=== PATIENT | female | born 1955 | race Caucasian/White ===

== ENCOUNTER 2017-09-09 05:36 | Observation (INO) | payer BC, SELFPAY ==
[~2017-09-09] VITALS: Ht 167.6 cm; Wt 87.3 kg
[~2017-09-09 05:36] MED LIST: ? ANTIDEPRESSANT; ACEBUTCAFT PO; ALBU3IS INH; ALBU90OI INH; ALBU90OI61 INH; ALBUIS INH; ALPR.5 PO; ALPR1 PO; AMIT50 PO; AMLO10 PO; AMOCLA875 PO; ASPI325 PO; ATOR20 PO; AZIT250 PO; BUPR150T2 PO; CARI350 PO; CARV3.125 PO; CARV6.25 PO; CEPH500 PO; CLON.2TP TP; CLON.3TP TP; CLOP75 PO; Chantix0.5 MG PO; DOXA4 PO; DULO60 PO; FLUSAL2505 INH; FURO20 PO; FURO40 PO; GI COCKTAIL PO; HYDACE10B PO; ISOMON30 PO; Isosorbide Mono60 MG PO; LAVAP17G PO; LEVFLO500 PO; LOSA25 PO; METO50 PO; NIFE30ER PO; NITR.4SL SL; NITR.4TPA TOP; OLME20 PO; OLME5TAB PO; OMEP20ER PO; ONDA4 PO; ONDA4ODT MM; ONDA8 PO; OXYC10TA19; PANT40 PO; POTA10T PO; PRED20 PO; PROC10 PO; Percocet 5-3251 EACH PO; RANI150 PO; RANO500T PO; ROSU10TA PO; SERT100 PO; SIMV40 PO; Silvadene20 GM TOP; VARE1 PO; VENL150ER PO; VENL75ER PO; [UNRECOGNIZED DRUG - REMARK]; [UNRECOGNIZED DRUG - REMARK]
[2017-09-10 03:57] LABS: BASOPHILS ABSOLUTE AUTO 0.01 K/mm3 (0.00-0.23); BASOPHILS PERCENT AUTO 0 % (0-2); EOSINOPHILS PERCENT AUTO 0 % (0-6); Hematocrit 34.7 % (33.0-51.0); Hemoglobin 11.1 g/dL (11.5-16.0); IMMATURE GRAN ABSOLUTE AUTO 0.01 K/mm3 (0.00-0.10); IMMATURE GRAN PERCENT AUTO 0 % (0-1); LYMPHOCYTES ABSOLUTE AUTO 3.47 K/mm3 (0.84-5.20); LYMPHOCYTES PERCENT AUTO 44 % (21-46); MONOCYTES ABSOLUTE AUTO 0.58 K/mm3 (0.16-1.47); MONOCYTES PERCENT AUTO 7 % (4-13); Mean Corpuscular HGB 27.3 pg (26.0-34.0); Mean Corpuscular Volume 86 fL (80-100); Mean Platelet Volume 11.1 fL (9.1-12.4); NEUTROPHILS ABSOLUTE AUTO 3.79 K/mm3 (1.96-9.15); NEUTROPHILS PERCENT AUTO 48 % (41-73); Platelet Count 181 K/mm3 (150-400); RDW Coefficient Variation 16.1 % (11.7-14.2); Red Blood Cell Count 4.06 M/mm3 (3.80-5.20); White Blood Cell Count 7.86 K/mm3 (4.00-11.30)
[2017-09-10 04:19] LABS: Bun/Creatinine Ratio 20.8 (12.0-20.0); Calcium, Blood 8.1 mg/dL (8.5-10.1); Creatinine, Blood 1.2 mg/dL (0.40-1.00); Potassium, Blood 3.5 mmol/L (3.5-5.5)
== END 2017-09-10 09:46 | disposition home or self-care (01) ==
LOC: MHTC 05:36 → PCU 09:46 → MHTC 09:47 → PCU 09-10 09:46
PROVIDERS: Internal Medicine Interventional Cardiology
PROC: B240ZZ3 Ultrasonography of Single Coronary Artery, Intravascular (ICD-10-PCS; principal; 2017-09-09)
PROC: 027034Z Dilation of Coronary Artery, One Artery with Drug-eluting Intraluminal Device, Percutaneous Approach (ICD-10-PCS; principal; 2017-09-09)
PROC: B2111ZZ Fluoroscopy of Multiple Coronary Arteries using Low Osmolar Contrast (ICD-10-PCS; principal; 2017-09-09)
PROC: 4A033BC Measurement of Arterial Pressure, Coronary, Percutaneous Approach (ICD-10-PCS; principal; 2017-09-09)
DX: I25.119 Atherosclerotic heart disease of native coronary artery with unspecified angina pectoris (principal); I73.9 Peripheral vascular disease, unspecified; I11.0 Hypertensive heart disease with heart failure; I50.1 Left ventricular failure, unspecified; R09.89 Other specified symptoms and signs involving the circulatory and respiratory systems; R00.1 Bradycardia, unspecified; F17.210 Nicotine dependence, cigarettes, uncomplicated; E78.00 Pure hypercholesterolemia, unspecified; M79.7 Fibromyalgia; K21.0 Gastro-esophageal reflux disease with esophagitis; M47.26 Other spondylosis with radiculopathy, lumbar region; F43.9 Reaction to severe stress, unspecified; F41.9 Anxiety disorder, unspecified; M72.2 Plantar fascial fibromatosis; M20.40 Other hammer toe(s) (acquired), unspecified foot; Z79.899 Other long term (current) drug therapy; Z79.01 Long term (current) use of anticoagulants; Z79.82 Long term (current) use of aspirin; Z88.5 Allergy status to narcotic agent; Z88.1 Allergy status to other antibiotic agents; Z88.6 Allergy status to analgesic agent
CPT/HCPCS: 36415; 80048; 85025; 85610; 92978; 93005; 93010; 93454; 93571; 99152; 99153; C1725; C1753; C1769; C1874; C1894; C9600; G0378; J1644; J2250; J3010; J7030; Q9967

== ENCOUNTER 2019-02-02 05:38 | Day surgery (SDC) | payer BC ==
[~2019-02-02] VITALS: Ht 167.6 cm; Wt 87.0 kg
[~2019-02-02 05:38] MED LIST changes: +PROM25 PO; +TERA5 PO
--- NOTE | 2019-02-02 06:31 | NUR ---
Patient States Post-Procedure ride home has been arranged with her .
--- NOTE | 2019-02-02 06:31 | NUR ---
History, Chart, Medications and Allergies reviewed before start of procedure. Patienterin denies allergic reaction to pravastatin and requests that it be removed from her allergy list. Patient confirms NPO status and agrees with scheduled surgery.
--- NOTE | 2019-02-02 06:58 | NUR ---
Patient left dentures at home. She gave her glasses to her .
--- NOTE | 2019-02-02 10:10 | NUR ---
INCISIONS TO ABDOMEND C/D/I (STERI STRIPS), BANDIADE TO BELLY BUTTON STERI STRIPS PLACED TO HELP INCASE THERES OOZING. PT STATES PAIN WENT DOWN A FEW NOTCHES. PT BELCHED ASSISTED UP TO GET DRESSED. NAUSEA IMPROVED. AT BEDSIDE. Discharge instructions reviewed with patient. Patient verbalizes understanding. Copy given to patient to take home.
--- NOTE | 2019-02-02 10:15 | NUR ---
Discharged via wheelchair to private car for ride home.
[2019-06-04] MEDS ORDERED: NYSTRITC (16:32)
== END 2019-02-02 22:55 | disposition home or self-care (01) ==
LOC: ORSCMMR 05:38 → ORD 07:30 → ORSCMMR 22:55
PROVIDERS: Surgery
PROC: 0FT44ZZ Resection of Gallbladder, Percutaneous Endoscopic Approach (ICD-10-PCS; principal; 2019-02-02 07:30)
DX: K80.11 Calculus of gallbladder with chronic cholecystitis with obstruction (principal); J44.9 Chronic obstructive pulmonary disease, unspecified; F17.210 Nicotine dependence, cigarettes, uncomplicated; I12.9 Hypertensive chronic kidney disease with stage 1 through stage 4 chronic kidney disease, or unspecified chronic kidney disease; N18.9 Chronic kidney disease, unspecified; R73.03 Prediabetes; Z79.899 Other long term (current) drug therapy; Z79.82 Long term (current) use of aspirin
CPT/HCPCS: 88304; J0360; J0690; J1100; J2250; J2370; J2405; J2704; J3010; J7030; J7120

== ENCOUNTER 2019-06-05 06:18 | Day surgery (SDC) | payer BC ==
[~2019-06-05] VITALS: Ht 167.6 cm; Wt 88.0 kg
[~2019-06-05 06:18] MED LIST changes: +NYSTRITC
--- NOTE | 2019-06-05 11:30 | NUR ---
Dr. Zapata in recovery room. Orders received for iv hydralazine with parameters.
--- NOTE | 2019-06-05 11:50 | NUR ---
Telephone orders for Oxycodne 10 mg po, also I was unable to find patients papers that Dr. Zapata said he filled out for no work until she is seen in his office 17 June. No time .. I called and asked Thu to help clarify the time of the appointment as well as the work release form. Thu will work on it from her side and make the follow up time as well as redo the work relase paper work.
--- NOTE | 2019-06-05 13:18 | NUR ---
pT MEDICATED WITH RX FOR B/P ELEVATED.
--- NOTE | 2019-06-05 13:21 | NUR ---
2 CC AIR REMOVED FROM TR-BAND. Pt little anxious. family at bedside. b/p dropping down 153/64.
--- NOTE | 2019-06-05 13:45 | NUR ---
ALL AIR GONE FROM TR-BAND. PT EATING SOME SNACKS. B/P 149/65 PT STATES SHE HAS H/A/ GIVEN FOOD AND FLUID.
--- NOTE | 2019-06-05 14:45 | NUR ---
Tr-band removed dabbed with warm water and patted dry. Cloth dot applied to the right radial site. No bleeding or hematoma noted. Pt reviewed discharge instructions with me and verbalized understanding. Inst patient to cut down on smoking as she is havind difficulty in stopping. Pt also smokes in car and has made a verbal agreement to stop in care and decrease cigs down to 10 instead of 15. Pt encourage to drink more water in the next few days to help her kidneys. She also was told to keep track of b/p and take into the Doctor for tracking pt verbalizes understanding.
== END 2019-06-05 16:00 | disposition home or self-care (01) ==
LOC: MHTC 06:18
DX: I25.119 Atherosclerotic heart disease of native coronary artery with unspecified angina pectoris (principal); I10 Essential (primary) hypertension; I73.9 Peripheral vascular disease, unspecified; M79.7 Fibromyalgia; M47.816 Spondylosis without myelopathy or radiculopathy, lumbar region; F32.9 Major depressive disorder, single episode, unspecified; K21.9 Gastro-esophageal reflux disease without esophagitis; F17.210 Nicotine dependence, cigarettes, uncomplicated; Z88.5 Allergy status to narcotic agent; Z88.8 Allergy status to other drugs, medicaments and biological substances; Z88.1 Allergy status to other antibiotic agents; Z88.6 Allergy status to analgesic agent; Z79.899 Other long term (current) drug therapy; Z79.82 Long term (current) use of aspirin; Z79.51 Long term (current) use of inhaled steroids; Z95.5 Presence of coronary angioplasty implant and graft
CPT/HCPCS: 85347; 92978; 93005; 93010; 93454; 99152; 99153; C1753; C1769; C1887; C1894; J0153; J0360; J1200; J1644; J2250; J3010; J7030; Q9967

== ENCOUNTER 2019-06-26 15:55 | Observation (INO) | payer BC ==
[~2019-06-26] VITALS: Ht 167.6 cm; Wt 87.4 kg
[~2019-06-26 15:55] MED LIST changes: -ALBU90OI61 INH; -ASPI325 PO; -ATOR20 PO; -LOSA25 PO; -OXYC10TA19; -PANT40 PO; -TERA5 PO
[2019-06-26] MEDS ORDERED: FURO20 PO (16:38)
[2019-06-26] MEDS ORDERED: METO50 PO (16:39)
[2019-06-26] MEDS ORDERED: Terazosin HCl10 MG PO (16:40)
[2019-06-26] MEDS ORDERED: LOSARTAN POTAS100 MG PO (16:41)
[2019-06-26] MEDS ORDERED: ATOR20 PO (16:41)
[2019-06-26 16:44] LABS: BASOPHILS ABSOLUTE AUTO 0.02 K/mm3 (0.00-0.23); BASOPHILS PERCENT AUTO 0 % (0-2); EOSINOPHILS ABSOLUTE AUTO 0.02 K/mm3 (0.00-0.68); EOSINOPHILS PERCENT AUTO 0 % (0-6); Hematocrit 37.4 % (33.0-51.0); Hemoglobin 11.7 g/dL (11.5-16.0); IMMATURE GRAN ABSOLUTE AUTO 0.14 K/mm3 (0.00-0.10); IMMATURE GRAN PERCENT AUTO 1 % (0-1); LYMPHOCYTES ABSOLUTE AUTO 3.89 K/mm3 (0.84-5.20); LYMPHOCYTES PERCENT AUTO 32 % (21-46); MONOCYTES ABSOLUTE AUTO 0.96 K/mm3 (0.16-1.47); MONOCYTES PERCENT AUTO 8 % (4-13); Mean Corpuscular HGB 28.1 pg (26.0-34.0); Mean Corpuscular HGB Conc 31.3 g/dL (31.5-36.5); Mean Corpuscular Volume 90 fL (80-100); Mean Platelet Volume 10.1 fL (9.1-12.4); NEUTROPHILS ABSOLUTE AUTO 7.25 K/mm3 (1.96-9.15); NEUTROPHILS PERCENT AUTO 59 % (41-73); Platelet Count 405 K/mm3 (150-400); RDW Coefficient Variation 15.3 % (11.7-14.2); RDW Standard Deviation 50.4 fL (35.1-46.3); Red Blood Cell Count 4.17 M/mm3 (3.80-5.20); White Blood Cell Count 12.28 K/mm3 (4.00-11.30)
[2019-06-26 17:10] LABS: Albumin, Blood 3.2 g/dL (3.4-5.0); Albumin/Globulin Ratio 0.7 (0.8-1.8); Bilirubin, Total 0.5 mg/dL (0.1-1.0); Bun/Creatinine Ratio 30.1 (12.0-20.0); Calcium, Blood 8.9 mg/dL (8.5-10.1); Creatinine, Blood 1.53 mg/dL (0.40-1.00); Globulin, Blood 4.5 g/dL (2.2-4.0); Potassium, Blood 3.8 mmol/L (3.5-5.5); Total Protein, Blood 7.7 g/dL (6.4-8.2); Troponin I 0.048 ng/mL (0.000-0.040)
[2019-06-26] MEDS ORDERED: VENL75ER PO (18:08)
[2019-06-26] MEDS ORDERED: OXYC10TA19 PO (18:08)
[2019-06-26] MEDS ORDERED: ASPI81CH PO (18:08)
[2019-06-26] MEDS ORDERED: PANT40 PO (18:09)
[2019-06-26] MEDS ORDERED: Potassium Chlo10 ME1 PO (18:09)
[2019-06-26] MEDS ORDERED: ALBU90OI61 INH (18:19)
[2019-06-26 18:57] LABS: International Normalized Ratio 1.03; Prothrombin Time Results 10.9 Sec (9.7-11.5)
[2019-06-27 00:58] LABS: BASOPHILS ABSOLUTE AUTO 0.03 K/mm3 (0.00-0.23); BASOPHILS PERCENT AUTO 0 % (0-2); EOSINOPHILS ABSOLUTE AUTO 0.01 K/mm3 (0.00-0.68); EOSINOPHILS PERCENT AUTO 0 % (0-6); Hematocrit 35.7 % (33.0-51.0); Hemoglobin 11.1 g/dL (11.5-16.0); IMMATURE GRAN PERCENT AUTO 1 % (0-1); LYMPHOCYTES ABSOLUTE AUTO 3.56 K/mm3 (0.84-5.20); LYMPHOCYTES PERCENT AUTO 36 % (21-46); MONOCYTES ABSOLUTE AUTO 0.76 K/mm3 (0.16-1.47); MONOCYTES PERCENT AUTO 8 % (4-13); Mean Corpuscular HGB 28.5 pg (26.0-34.0); Mean Corpuscular HGB Conc 31.1 g/dL (31.5-36.5); Mean Corpuscular Volume 92 fL (80-100); Mean Platelet Volume 10.3 fL (9.1-12.4); NEUTROPHILS ABSOLUTE AUTO 5.45 K/mm3 (1.96-9.15); NEUTROPHILS PERCENT AUTO 55 % (41-73); Platelet Count 362 K/mm3 (150-400); RDW Coefficient Variation 15.4 % (11.7-14.2); RDW Standard Deviation 51.9 fL (35.1-46.3); Red Blood Cell Count 3.89 M/mm3 (3.80-5.20); White Blood Cell Count 9.91 K/mm3 (4.00-11.30)
[2019-06-27 01:16] LABS: Albumin, Blood 2.8 g/dL (3.4-5.0); Albumin/Globulin Ratio 0.7 (0.8-1.8); Bilirubin, Total 0.2 mg/dL (0.1-1.0); Bun/Creatinine Ratio 34.6 (12.0-20.0); Calcium, Blood 8.8 mg/dL (8.5-10.1); Creatinine, Blood 1.33 mg/dL (0.40-1.00); Globulin, Blood 4.2 g/dL (2.2-4.0); Potassium, Blood 4.1 mmol/L (3.5-5.5)
--- NOTE | 2019-06-27 05:40 | NUR ---
SHIFT SUMMARY: 64 Y/O FEMALE ADMITTED [facility] AROUND 1943 FOR [facility]IB W/ RVR. SHE ARRIVED IN AFIB AND NATURALLY CONVERTED BACK TO SINUS WHEN IN THE ER. SHE WAS ADMITTED FOR OBSERVATION SHE RECENTLY HAD A CABAG COMPLETED ON 06/16. SHE ARRIVED TO THE FLOOR VIA GURNEY BUT WAS ABLE TO TRANSFER SELF TO THE BED. SHE USED POST OP CABAG PERCAUTIONS WITH TRANSFER. SHE CURRENTLY STILL HAS THE MID STERNUM INCISION THAT HAS SCABS AND PINK HEALING WELL WITH NO OPEN AREAS. CHEST DISCOMFORT FROM THE INCISION STILL PRESENT. SHE DID HAVE CHEST TIGHTNESS AND PALPITATIONS ON ARRIVAL TO THE ER. THIS HAS CURRENTLY RESOLVED AND HAS NOT RETURNED THIS SHIFT. TELE READ SINUS WITH OCCATIONAL PVC'S ALL NIGHT IN THE 60'S. SHE HAS REMAINED ASYMPTOMATIC ALL EVENING, SLEEPING IN THE ROOM. NO OTHER CHANGES TO REPORT WILL REPORT TO DAY SHIFT RN.
--- NOTE | 2019-06-27 11:01 | NUR ---
Echocardiogram completed.
--- NOTE | 2019-06-27 17:25 | NUR ---
SHIFT SUMMARY: PT HAS BEEN A/O X 4 WITH C/O ONGOING CHROINIC PAIN. PT HAS BEEN GETTING SCHEDULED PAIN MEDS ORDERED. PT HAS BEEN IND IN ROOM AND CONTINUES TO GO OUTSIDE TO SMOKE. STERNAL INCISION IN SCABBED AND WELL APPROX AND PT REPORTS THAT SHE IS STILL USING HER STERNAL PRECAUTIONS S/P CABG OM 06/16. RADIOLOGIC TECH REPORTS A RHYTHM OF SINUS @ 55. PT IS ABLE TO MAKE HER NEEDS KNOWN AND CALLS FOR HELP WHEN NEEDED.
--- NOTE | 2019-06-28 06:30 | NUR ---
SHIFT SUMMARY PT A/O INDEPENDENT. NO C/O PAIN IN FACT REFUSED SCHEDULED PAIN MEDS SAYING IT WOULD BE TOO LATE TO TAKE THEM AT 2100 SINCE THEY WOULD KEEP HER FROM SLEEPING. TELE HAS BEEN NSR. NO C/O CP. SHE SLEPT THROUGH THE NIGHT. CALL LIGHT IN REACH.
[2019-06-28] MEDS ORDERED: ELIQUIS5 MG PO (08:57)
[2019-06-28] MEDS ORDERED: Nicoderm Cq1 EACH TOP (08:58)
--- NOTE | 2019-06-28 12:05 | NUR ---
DISCHARGE DISCHARGE INSTRUCTIONS, MEDICATION LIST AND FOLLOW UP APPOINTMENTS REVIEWED WITH PT. QUESTIONS ANSWERED. PT VERBALLY INDICATED UNDERSTANDING OF ALL INSTRUCTIONS RECEIVED. TELE BOX REMOVED AND RETURNED TO PCU. PT DOES NOT WANT NICOTINE PATCH SCRIP FILLED, PHARMACY NOTIFIED.
== END 2019-06-28 12:41 | disposition home or self-care (01) ==
LOC: ER 15:55 → MEDS 15:56
PROVIDERS: Nurse Practitioner Acute Care; Physician Assistant; ADMIT Internal Medicine
DX: I48.0 Paroxysmal atrial fibrillation (principal); I25.10 Atherosclerotic heart disease of native coronary artery without angina pectoris; G89.29 Other chronic pain; M54.9 Dorsalgia, unspecified; F32.9 Major depressive disorder, single episode, unspecified; I10 Essential (primary) hypertension; E78.5 Hyperlipidemia, unspecified; F17.210 Nicotine dependence, cigarettes, uncomplicated; K21.9 Gastro-esophageal reflux disease without esophagitis; R74.8 Abnormal levels of other serum enzymes; Z95.1 Presence of aortocoronary bypass graft; Z88.1 Allergy status to other antibiotic agents; Z88.5 Allergy status to narcotic agent; Z88.6 Allergy status to analgesic agent; Z79.82 Long term (current) use of aspirin; Z79.899 Other long term (current) drug therapy
CPT/HCPCS: 36415; 71046; 80053; 84443; 84484; 85025; 85610; 85730; 90670; 93005; 93010; 93306; 99285-25

== ENCOUNTER → 2020-02-11 | Outpatient (CLI) | payer BC ==
[~2020-02-11] MED LIST changes: +ALBU90OI61 INH; +ASPI81CH PO; +ATOR20 PO; +ELIQUIS5 MG PO; +LOSARTAN POTAS100 MG PO; +Nicoderm Cq1 EACH TOP; +OXYC10TA19 PO; +PANT40 PO; +Potassium Chlo10 ME1 PO; +Terazosin HCl10 MG PO
== END ==
LOC: LAB 12:18 → LAB SHORT 12:18
DX: R10.9 Unspecified abdominal pain (principal)
CPT/HCPCS: 87077; 87086; 87186

== ENCOUNTER 2020-05-31 05:18 | Day surgery (SDC) | payer BC ==
[2020-05-31] MEDS ORDERED: CLON.1 PO (09:00)
[2020-05-31] MEDS ORDERED: ATOR20 PO (09:01)
== END 2020-05-31 09:50 | disposition home or self-care (01) ==
LOC: ATC 05:18
DX: E27.40 Unspecified adrenocortical insufficiency (principal); I12.9 Hypertensive chronic kidney disease with stage 1 through stage 4 chronic kidney disease, or unspecified chronic kidney disease; N18.30 Chronic kidney disease, stage 3 unspecified; K21.9 Gastro-esophageal reflux disease without esophagitis; D63.1 Anemia in chronic kidney disease; E55.9 Vitamin D deficiency, unspecified; F17.210 Nicotine dependence, cigarettes, uncomplicated; R73.9 Hyperglycemia, unspecified; Z88.1 Allergy status to other antibiotic agents; Z88.8 Allergy status to other drugs, medicaments and biological substances; Z79.899 Other long term (current) drug therapy
CPT/HCPCS: 36415; 80400; 82533; 96372; J0834

== ENCOUNTER 2020-12-07 12:06 | Day surgery (SDC) | payer BC ==
[~2020-12-07] VITALS: Ht 167.6 cm; Wt 93.3 kg
== END 2020-12-07 15:23 | disposition home or self-care (01) ==
LOC: ORSCSDS 12:06
PROC: 0DB58ZX Excision of Esophagus, Via Natural or Artificial Opening Endoscopic, Diagnostic (ICD-10-PCS; principal; 2020-12-07)
PROC: 0DBK8ZX Excision of Ascending Colon, Via Natural or Artificial Opening Endoscopic, Diagnostic (ICD-10-PCS; principal; 2020-12-07)
PROC: 0DB78ZX Excision of Stomach, Pylorus, Via Natural or Artificial Opening Endoscopic, Diagnostic (ICD-10-PCS; principal; 2020-12-07)
PROC: 0D757ZZ Dilation of Esophagus, Via Natural or Artificial Opening (ICD-10-PCS; principal; 2020-12-07)
PROC: 0DBM8ZX Excision of Descending Colon, Via Natural or Artificial Opening Endoscopic, Diagnostic (ICD-10-PCS; principal; 2020-12-07)
DX: R13.10 Dysphagia, unspecified (principal); K22.70 Barrett's esophagus without dysplasia; K29.70 Gastritis, unspecified, without bleeding; K44.9 Diaphragmatic hernia without obstruction or gangrene; Z12.11 Encounter for screening for malignant neoplasm of colon; D12.2 Benign neoplasm of ascending colon; D12.4 Benign neoplasm of descending colon; K57.30 Diverticulosis of large intestine without perforation or abscess without bleeding; G47.33 Obstructive sleep apnea (adult) (pediatric); E66.9 Obesity, unspecified; Z68.35 Body mass index [BMI] 35.0-35.9, adult; I10 Essential (primary) hypertension; I48.91 Unspecified atrial fibrillation; Z79.01 Long term (current) use of anticoagulants; I25.10 Atherosclerotic heart disease of native coronary artery without angina pectoris; J44.9 Chronic obstructive pulmonary disease, unspecified; F17.210 Nicotine dependence, cigarettes, uncomplicated; K21.9 Gastro-esophageal reflux disease without esophagitis; N18.9 Chronic kidney disease, unspecified
CPT/HCPCS: 87081; 88305; 88342; J2704

== ENCOUNTER → 2021-02-13 | Outpatient (CLI) | payer BC ==
[~2021-02-13] MED LIST changes: +AMLO5 PO; +ASCO500 PO; +BUSP10 PO; +CLON.1 PO; +FERROUS SULFAT325 M3 PO; +FLUT1DIS5 INH; +KAPSPARGO SPRIN25 MG PO; +LINZESS72 MCG PO; +LOSA25; +NITROGLYCERIN0.4 M3 SL; +Nitroglycerin1 EAC3 TOP; +OXYC10ER PO
== END | disposition home or self-care (01) ==
LOC: LAB 16:40 → LAB SHORT 16:40
DX: N39.0 Urinary tract infection, site not specified (principal)
CPT/HCPCS: 87086

== ENCOUNTER → 2022-03-06 | Outpatient (CLI) | payer MEDICARE | END | disposition home or self-care (01) | LOC: LAB 12:00 → LAB SHORT 12:00 | DX: N39.0 Urinary tract infection, site not specified (principal) | CPT/HCPCS: 87077; 87086; 87186 ==

== ENCOUNTER → 2022-03-20 | Outpatient (CLI) | payer MEDICARE | END | disposition home or self-care (01) | LOC: LAB SHORT 16:21 → LAB 16:21 | DX: N39.0 Urinary tract infection, site not specified (principal) | CPT/HCPCS: 87086 ==

== ENCOUNTER → 2022-07-06 | Outpatient (CLI) | payer MEDICARE ==
[2022-07-06 09:53] LABS: BASOPHILS ABSOLUTE AUTO 0.01 K/mm3 (0.00-0.23); BASOPHILS PERCENT AUTO 0 % (0-2); EOSINOPHILS PERCENT AUTO 0 % (0-6); Hematocrit 32.2 % (33.0-51.0); Hemoglobin 10.3 g/dL (11.5-16.0); IMMATURE GRAN ABSOLUTE AUTO 0.04 K/mm3 (0.00-0.10); IMMATURE GRAN PERCENT AUTO 0 % (0-1); LYMPHOCYTES ABSOLUTE AUTO 2.66 K/mm3 (0.84-5.20); LYMPHOCYTES PERCENT AUTO 29 % (21-46); MONOCYTES ABSOLUTE AUTO 0.68 K/mm3 (0.16-1.47); MONOCYTES PERCENT AUTO 7 % (4-13); Mean Corpuscular HGB 27.7 pg (26.0-34.0); Mean Corpuscular Volume 87 fL (80-100); Mean Platelet Volume 10.8 fL (9.1-12.4); NEUTROPHILS ABSOLUTE AUTO 5.95 K/mm3 (1.96-9.15); NEUTROPHILS PERCENT AUTO 64 % (41-73); Platelet Count 233 K/mm3 (150-400); RDW Coefficient Variation 17.5 % (11.7-14.2); RDW Standard Deviation 55.3 fL (35.1-46.3); Red Blood Cell Count 3.72 M/mm3 (3.80-5.20); White Blood Cell Count 9.34 K/mm3 (4.00-11.30)
[2022-07-06 10:04] LABS: Albumin, Blood 3.1 g/dL (3.4-5.0); Albumin/Globulin Ratio 0.8 (0.8-1.8); Bilirubin, Total 0.2 mg/dL (0.1-1.0); Bun/Creatinine Ratio 21.5 (12.0-20.0); Calcium, Blood 8.4 mg/dL (8.5-10.1); Creatinine, Blood 1.58 mg/dL (0.40-1.00); Globulin, Blood 3.8 g/dL (2.2-4.0); Potassium, Blood 5.1 mmol/L (3.5-5.5); Total Protein, Blood 6.9 g/dL (6.4-8.2); Uric Acid, Blood 11.7 mg/dL (2.6-6.0)
== END | disposition home or self-care (01) ==
LOC: LAB SHORT 09:49 → LAB 09:49
PROVIDERS: General Practice
DX: M79.89 Other specified soft tissue disorders (principal)
CPT/HCPCS: 80053; 84550; 85025; 85651

== ENCOUNTER 2022-08-05 13:00 | Emergency (ER) | payer MEDICARE ==
[~2022-08-05] VITALS: Ht 167.6 cm; Wt 98.4 kg
[2022-08-05] MEDS ORDERED: CEPH500 PO (14:11)
[2022-08-05] MEDS ORDERED: SULTRIDS PO (14:11)
== END 2022-08-05 14:20 | disposition home or self-care (01) ==
LOC: ER 13:00
DX: L03.116 Cellulitis of left lower limb (principal); I12.9 Hypertensive chronic kidney disease with stage 1 through stage 4 chronic kidney disease, or unspecified chronic kidney disease; N18.9 Chronic kidney disease, unspecified; F17.210 Nicotine dependence, cigarettes, uncomplicated; Z88.1 Allergy status to other antibiotic agents; Z88.5 Allergy status to narcotic agent; Z79.899 Other long term (current) drug therapy; Z79.01 Long term (current) use of anticoagulants
CPT/HCPCS: 99283

== ENCOUNTER → 2023-07-01 | Outpatient (CLI) | payer MEDICARE ==
[~2023-07-01] MED LIST changes: +Cleocin HCl300 MG PO; +SULTRIDS PO; +WARF1 PO
[2023-07-01 19:50] LABS: Percent Saturation 14.2 % (15.0-50.0)
== END ==
LOC: LAB 18:22 → LAB SHORT 18:22
PROVIDERS: Internal Medicine Hematology & Oncology
DX: D50.0 Iron deficiency anemia secondary to blood loss (chronic) (principal)
CPT/HCPCS: 82728; 83540; 83550

== ENCOUNTER → 2023-07-22 | Outpatient (CLI) | payer MEDICARE ==
[2023-07-22 17:48] LABS: Percent Saturation 17.4 % (15.0-50.0)
== END | disposition home or self-care (01) ==
LOC: LAB 10:34 → LAB SHORT 10:34
PROVIDERS: Internal Medicine Hematology & Oncology
DX: D50.0 Iron deficiency anemia secondary to blood loss (chronic) (principal)
CPT/HCPCS: 82728; 83540; 83550

== ENCOUNTER → 2023-08-01 | Outpatient (CLI) | payer MEDICARE | LOC: LAB 17:59 → LAB SHORT 17:59 | DX: R30.0 Dysuria (principal) | CPT/HCPCS: 87077; 87086; 87147; 87186 ==

== ENCOUNTER → 2023-09-18 | Outpatient (CLI) | payer MEDICARE | LOC: LAB SHORT 16:14 → LAB 16:14 | DX: N39.0 Urinary tract infection, site not specified (principal) | CPT/HCPCS: 87077; 87086; 87147; 87186 ==

== ENCOUNTER → 2024-03-16 | Outpatient (CLI) | payer MEDICARE ==
[~2024-03-16] MED LIST changes: +ALLOPURINOL100 M1 PO; -AMLO5 PO; +ATORVASTATIN CA20 MG PO; +AVAPRO300 MG PO; +BISA10S PR; +CARVEDILOL6.25 MG PO; +CATAPRES0.3 MG PO; +CYCL10 PO; +DOCUZEN 8.6-501 EACH PO; +GABA300 PO; +INSULANI SC; +MIRALAX17 GM PO; +NEURONTIN300 MG PO; +SEMGLEE (Y100 UNIT/2 SQ; -WARF1 PO; +WARF5
== END | disposition home or self-care (01) ==
LOC: LAB 18:10 → LAB SHORT 18:10
DX: N39.0 Urinary tract infection, site not specified (principal)
CPT/HCPCS: 87077; 87086; 87186

== ENCOUNTER → 2024-04-24 | Outpatient (CLI) | payer MEDICARE | END | disposition home or self-care (01) | LOC: LAB SHORT 16:17 → LAB 16:17 | DX: N39.0 Urinary tract infection, site not specified (principal) | CPT/HCPCS: 87077; 87086; 87186 ==

== ENCOUNTER → 2024-08-27 | Outpatient (CLI) | payer MEDICARE | LOC: LAB SHORT 16:03 → LAB 16:03 | DX: N39.0 Urinary tract infection, site not specified (principal) | CPT/HCPCS: 87077; 87086; 87186 ==

== ENCOUNTER 2024-09-28 15:10 | Inpatient (IN) | payer MEDICARE, MEDICAID ==
[~2024-09-28] VITALS: Ht 167.6 cm; Wt 92.0 kg
[~2024-09-28 15:10] MED LIST changes: -WARF5; +WARF5 PO
[2024-09-28 15:53] VITALS: BP 159/90
[2024-09-28] MEDS ORDERED: ALLO100 PO (16:31)
[2024-09-28] MEDS ORDERED: AMLO10 PO (16:33)
[2024-09-28] MEDS ORDERED: CATAPRES0.3 MG PO (16:36)
[2024-09-28] MEDS ORDERED: CLOP75 PO (16:37)
[2024-09-28] MEDS ORDERED: LACT10SY PO (16:38)
[2024-09-28] MEDS ORDERED: FAMO20 PO (16:39)
[2024-09-28] MEDS ORDERED: FURO80 PO (16:41)
[2024-09-28] MEDS ORDERED: IRBESARTAN300 MG PO (16:42)
[2024-09-28] MEDS ORDERED: Isosorbide Mono30 MG PO (16:43)
[2024-09-28] MEDS ORDERED: INSULANI SC (16:44)
[2024-09-28] MEDS ORDERED: LIDO700A20 TOP (16:45)
[2024-09-28] MEDS ORDERED: FLU VACC TS2024-25(6MOS UP)/PF 45 MCG/0.5 ML SYRINGE IM SCH (16:45)
[2024-09-28] MEDS ORDERED: NITR.4SL SL (16:47)
[2024-09-28] MEDS ORDERED: PROM25 PO (16:53)
[2024-09-28] MEDS ORDERED: Lactulose 20 GM/30 ML UDC PO PRN (17:25)
--- NOTE | 2024-09-28 17:36 | NUR ---
DIRECT ADMIT AT APPROX 1600. PT BROUGHT UP TO FLOOR VIA WHEELCHAIR, PT WAS ABLE TO STAND AND AMBULATE TO BED. PT SOB WITH EXERTION. ADMITTING PROVIDER TO ROOM. ADMISSION COMPLETED.
[2024-09-28] MEDS ORDERED: OxyCODONE HCL 10 MG TABCR PO PRN (17:50)
[2024-09-28] MEDS ORDERED: Albuterol HFA200 ACT/6.7 GM INH INH PRN (17:50)
[2024-09-28] MEDS ORDERED: Carvedilol 6.25 MG Tab PO SCH (18:00)
[2024-09-28] MEDS ORDERED: Bumetanide 0.25 MG/ML 4ML ViaL IV SCH (18:00)
[2024-09-28] MEDS ORDERED: Warfarin Sodium 5 MG Tab PO SCH ×2 (18:00→20:00)
[2024-09-28] MEDS ORDERED: Pantoprazole Sodium 40 MG Tab PO SCH (18:00)
[2024-09-28 18:58] LABS: International Normalized Ratio 2.29
[2024-09-28 20:36] VITALS: BP 172/68
[2024-09-28] MEDS ORDERED: MethylPREDNISolone Sod Succ 125 MG Vial IV ONE (20:45)
[2024-09-28] MEDS ORDERED: CloNIDine HCl 0.2 MG Tab PO SCH (21:00)
[2024-09-28] MEDS ORDERED: Amitriptyline HCl 50 MG Tab PO SCH (21:00)
[2024-09-28] MEDS ORDERED: Famotidine 20 MG Tab PO SCH (21:00)
[2024-09-28 21:34] LABS: Albumin, Blood 3.5 g/dL (3.4-5.0); Anion Gap 9 mmol/L (3-11); Blood Urea Nitrogen 87 mg/dL (8-24); Bun/Creatinine Ratio 55.1 (12.0-20.0); CO2, Blood 22 mmol/L (21-32); Calcium, Blood 8.9 mg/dL (8.5-10.1); Chloride, Blood 113 mmol/L (98-108); Creatinine, Blood 1.58 mg/dL (0.40-1.00); Glomerular Filtration Rate 35 (60-); Glucose, Blood 172 mg/dL (70-99); Potassium, Blood 4.2 mmol/L (3.5-5.5); Sodium, Blood 140 mmol/L (136-145)
[2024-09-28] MEDS ORDERED: Metolazone 5 MG Tab PO ONE (22:00)
[2024-09-28] MEDS ORDERED: Fluconazole 100 MG Tab PO SCH (22:05)
[2024-09-29 01:39] VITALS: BP 163/79
--- NOTE | 2024-09-29 06:43 | NUR ---
SHIFT SUMMARY PT ALERT AND ORIENTED TIMES 4. PT ADMITTED FOR FLUID OVERLOAD.PT IS INDEPENDENT AND ABLE TO AMUBULATE TO TOILET. PT IS ABLE TO MAKE NEEDS KNOWN. PT IS ON ROOM AIR DURING DAY BUT NEEDED 3L O2 NC DURING THE NIGHT TO KEEP STATS UP. PT TRIED C-PAP BUT REFUSED AFTER SHORT WHILE. PT HAS 24 HOUR URINE COLLECTION IN PROGRESS. PT IS ONE 1 LITER FLUID RESTRICTION. PER NEW ORDERS FOR FLUCONIZOLE FOR THRUSH, METOLAZONE, AND SOLU-MEDROL. CALL LIGHT WITHIN REACH, RAILS TIMES 2, BED IN LOW POSITION.
[2024-09-29 07:29] VITALS: BP 145/94
[2024-09-29] MEDS ORDERED: Insulin Human Lispro 100 Units/ML 3ML Syringe SC SCH (07:30)
[2024-09-29 08:39] LABS: BASOPHILS ABSOLUTE AUTO 0.02 K/mm3 (0.00-0.23); BASOPHILS PERCENT AUTO 0 % (0-2); EOSINOPHILS PERCENT AUTO 0 % (0-6); Hematocrit 35.7 % (33.0-51.0); Hemoglobin 11.5 g/dL (11.5-16.0); IMMATURE GRAN ABSOLUTE AUTO 0.13 K/mm3 (0.00-0.10); IMMATURE GRAN PERCENT AUTO 1 % (0-1); LYMPHOCYTES ABSOLUTE AUTO 0.68 K/mm3 (0.84-5.20); LYMPHOCYTES PERCENT AUTO 7 % (21-46); MONOCYTES ABSOLUTE AUTO 0.08 K/mm3 (0.16-1.47); MONOCYTES PERCENT AUTO 1 % (4-13); Mean Corpuscular HGB 27.6 pg (26.0-34.0); Mean Corpuscular HGB Conc 32.2 g/dL (31.5-36.5); Mean Corpuscular Volume 86 fL (80-100); Mean Platelet Volume 11.6 fL (9.1-12.4); NEUTROPHILS ABSOLUTE AUTO 9.32 K/mm3 (1.96-9.15); NEUTROPHILS PERCENT AUTO 91 % (41-73); NRBC ABSOLUTE 0.02 K/mm3 (0.00-0.02); NRBC Auto 0.2 /100 WBC (0.0-0.2); Platelet Count 219 K/mm3 (150-400); RDW Coefficient Variation 20.9 % (11.7-14.2); RDW Standard Deviation 61.6 fL (35.1-46.3); Red Blood Cell Count 4.17 M/mm3 (3.80-5.20); White Blood Cell Count 10.23 K/mm3 (4.00-11.30)
[2024-09-29 08:53] LABS: International Normalized Ratio 1.94; Prothrombin Time Results 19.8 Sec (9.7-11.5)
[2024-09-29 09:00] LABS: Albumin, Blood 3.3 g/dL (3.4-5.0); Anion Gap 12 mmol/L (3-11); Blood Urea Nitrogen 76 mg/dL (8-24); Bun/Creatinine Ratio 45.5 (12.0-20.0); CO2, Blood 21 mmol/L (21-32); Calcium, Blood 8.9 mg/dL (8.5-10.1); Chloride, Blood 108 mmol/L (98-108); Creatinine, Blood 1.67 mg/dL (0.40-1.00); Glomerular Filtration Rate 33 (60-); Glucose, Blood 266 mg/dL (70-99); Magnesium, Blood 2.3 mg/dL (1.6-2.4); Phosphorus, Blood 4.1 mg/dL (2.5-4.9); Sodium, Blood 137 mmol/L (136-145)
[2024-09-29] MEDS ORDERED: Empagliflozin 10 MG TAB PO SCH (09:00)
[2024-09-29] MEDS ORDERED: Irbesartan 150 MG Tab PO SCH (09:00)
[2024-09-29] MEDS ORDERED: Sacubitril/Valsartan 24 MG-26 MG Tab PO SCH (09:00)
[2024-09-29] MEDS ORDERED: Nystatin 100,000 Unit/ML Susp 5 ML UDC PO SCH (09:00)
[2024-09-29] MEDS ORDERED: Clopidogrel Bisulfate 75 MG Tab PO SCH (09:00)
[2024-09-29] MEDS ORDERED: Metolazone 5 MG Tab PO SCH (09:00)
[2024-09-29] MEDS ORDERED: Atorvastatin 10 MG Tab PO SCH (09:00)
[2024-09-29] MEDS ORDERED: Nicotine 14 MG PATCH TOP SCH (09:00)
[2024-09-29] MEDS ORDERED: Insulin Glargine-Yfgn 100 Unit/mL 3 ML SYR SC SCH (09:00)
[2024-09-29] MEDS ORDERED: Isosorbide Mononitrate 30 MG TABCR PO SCH (09:00)
[2024-09-29] MEDS ORDERED: Venlafaxine HCl 75 MG CapCR PO SCH (09:00)
[2024-09-29] MEDS ORDERED: Allopurinol 100 MG Tab PO SCH (09:00)
[2024-09-29 09:46] LABS: Influenza A, PCR NEGATIVE (NEGATIVE); Influenza B, PCR NEGATIVE (NEGATIVE); Resp Syncytial Virus, PCR NEGATIVE (NEGATIVE); SARS-Cov-2 (COVID-19) PCR, MMC NEGATIVE (NEGATIVE)
[2024-09-29] MEDS ORDERED: OxyCODONE HCL 5 MG TAB PO PRN (15:35)
[2024-09-29 16:13] VITALS: BP 143/120
[2024-09-29 16:24] VITALS: BP 146/71
[2024-09-29] MEDS ORDERED: Warfarin Sodium 7.5 MG Tab PO SCH (18:00)
--- NOTE | 2024-09-29 18:12 | NUR ---
SHIFT SUMMARY NO ACUTE CHANGES T/O SHIFT. A/Ox4, ABLE TO MAKE NEEDS KNOWN, AND USES CALL LIGHT APPROPRIATELY. PT TREATED FOR PAIN PER EMAR, PAIN MANAGEMENT CHANGED FROM BID TO TID. [place]STATIN SUSPENSION ORDERED FOR THRUSH. 24 HR PROTIEN URINE COMPLETED. PT NOW ON 2 LITER FLUID RESTRICTION. PT STARTED SHIFT ON 3 L/MIN VIA NASAL CANNULA, PT NOW ON 2 L/MIN VIA NASAL CANNULA AND SATING ABOVE 92%. PT SPOUSE BROUGHT CPAP FROM HOME, RT COMPLETED SET UP. SPOUSE ALSO BROUGHT PT DENTURES (UPPERS AND LOWERS) THAT ARE NOW IN PT POSESSION. PT CURRENTLY SITTING AT SIDE OF BED EATING DINNER, WITH CALL LIGHT WITHIN REACH.
[2024-09-29 19:23] VITALS: BP 138/75
--- NOTE | 2024-09-29 19:27 | NUR ---
NOTIFIED BY PIER MASTER ASSISTANT THAT PT HAD 5 BEAT RUN OF V TACH. PT ASSESSED AND ASYMPTOMATIC AND VSS, TELE NOTES BACK SINUS RHYTHM/BBB IN 70'S. HOSPITALIST NOTIFIED AND NO FURTHER ORDERS AT THIS TIME.
[2024-09-29 20:30] LABS: Protein, Urine Quantitative 15.8 mg/dL (0.0-11.9)
[2024-09-30] VITALS (8 sets, daily range): BP systolic 94–139; BP diastolic 59–107
--- NOTE | 2024-09-30 04:39 | NUR ---
NOTIFIED BY ROLLER LEVELER THAT PT HAD 10 BEAT RUN OF TRIGEMINY. PT ASYMPTOMATIC WHEN ASSESSED. HOSPITALIST NOTIFIED AND NO INTERVENTIONS CURRENTLY ORDERED BESIDES ALREADY DRAWN AM LABS. WILL CONTINUE CONTINOUS CARDIAC MONITORING.
[2024-09-30] MEDS ORDERED: Nitroglycerin 0.4 MG SUBL SL PRN (04:50)
[2024-09-30 04:55] LABS: BASOPHILS ABSOLUTE AUTO 0.02 K/mm3 (0.00-0.23); BASOPHILS PERCENT AUTO 0 % (0-2); EOSINOPHILS PERCENT AUTO 0 % (0-6); Hematocrit 31.6 % (33.0-51.0); Hemoglobin 10.3 g/dL (11.5-16.0); IMMATURE GRAN ABSOLUTE AUTO 0.12 K/mm3 (0.00-0.10); IMMATURE GRAN PERCENT AUTO 1 % (0-1); LYMPHOCYTES ABSOLUTE AUTO 1.38 K/mm3 (0.84-5.20); LYMPHOCYTES PERCENT AUTO 11 % (21-46); MONOCYTES ABSOLUTE AUTO 0.85 K/mm3 (0.16-1.47); MONOCYTES PERCENT AUTO 7 % (4-13); Mean Corpuscular HGB 27.6 pg (26.0-34.0); Mean Corpuscular HGB Conc 32.6 g/dL (31.5-36.5); Mean Corpuscular Volume 85 fL (80-100); Mean Platelet Volume 11.9 fL (9.1-12.4); NEUTROPHILS ABSOLUTE AUTO 10.52 K/mm3 (1.96-9.15); NEUTROPHILS PERCENT AUTO 82 % (41-73); Platelet Count 220 K/mm3 (150-400); RDW Coefficient Variation 20.7 % (11.7-14.2); RDW Standard Deviation 61.5 fL (35.1-46.3); Red Blood Cell Count 3.73 M/mm3 (3.80-5.20); White Blood Cell Count 12.89 K/mm3 (4.00-11.30)
[2024-09-30] MEDS ORDERED: Mag Hydrox/Al Hydrox/Simeth 18 ML,Lidocaine 2% Viscous Soln 9 ML,Atropine/Scopalam/Hyos... PO ONE (05:05)
[2024-09-30 05:15] LABS: Albumin, Blood 3.1 g/dL (3.4-5.0); Anion Gap 11 mmol/L (3-11); Blood Urea Nitrogen 83 mg/dL (8-24); Bun/Creatinine Ratio 45.6 (12.0-20.0); CO2, Blood 24 mmol/L (21-32); Calcium, Blood 8.9 mg/dL (8.5-10.1); Chloride, Blood 107 mmol/L (98-108); Creatinine, Blood 1.82 mg/dL (0.40-1.00); Glomerular Filtration Rate 30 (60-); Glucose, Blood 188 mg/dL (70-99); Magnesium, Blood 2.4 mg/dL (1.6-2.4); Phosphorus, Blood 4.2 mg/dL (2.5-4.9); Potassium, Blood 3.7 mmol/L (3.5-5.5); Sodium, Blood 138 mmol/L (136-145)
[2024-09-30 05:16] LABS: International Normalized Ratio 2.26; Prothrombin Time Results 22.8 Sec (9.7-11.5)
--- NOTE | 2024-09-30 05:31 | NUR ---
PT REPORTED CP RADIATING TO L SIDE OF CHEST. HOSPITALIST NOTIFIED AND EKG AND SL NITRO ORDERED. EKG WITH NO NEW FINDINGS PVC'S PRESENT WERE REPORTED BY DAY RN DURING SHIFT REPORT YESTERDAY. PT STATES HX OF ANXIETY AND ACID REFLUX. GI COCKTAIL ORDERED AND TROPONONINS TO R/O MO.
--- NOTE | 2024-09-30 05:51 | NUR ---
SHIFT SUMMARY NOC PT A/O X 4. PLEASANT AND COOPERATIVE WITH CARE. VSS. HS CBG 242. AT BEGINNING OF SHIFT PT HAD 5 BEAT RUN OF V TACH, PT ASYMPTOMATIC WHEN ASSESSED. HOSPITALIST NOTIFIED WITH NO FURTHER ORDERS GIVEN. PT HAD C/O OF CP @ 0500 WITH L SIDE RADIATION, EKG AND NITRO ORDERED PER HOSPITALIST THAT RELIEVED CP, EKG SHOWED PVC'S WHICH IS NOT A NEW FINDING. GI COCKTAIL AND TROPONIN X 2 ORDERED TO R/O CARDIAC INVOLVMENT. PT OTHERWISE RUNNING SINUS RHYTHM/BBB IN 70'S ON TELE. PT ON 2L/NC SPO2 >92%. PT HAS HOME HEALTH REFERRAL PENDING. PT CURRENTLY RESTING WITH BED IN LOWEST POSITION, AND CALL LIGHT WITHIN REACH.
--- NOTE | 2024-09-30 06:17 | NUR ---
DURING EARLY AM ROUNDING DR BARRAZA GAVE VERBAL ORDER TO TRANSITION FROM IV TO PO FOR BUMEX IF PT DISCHARGES TODAY.
--- NOTE | 2024-09-30 06:40 | NUR ---
NOTIFIED BY LAB PT HAD CRITICAL TROPONIN 1698. PT ASYMPTOMATIC CURRENTLY. HOSPITALIST NOTIFIED AND WILL REVIEW CHART AND PUT IN ORDERS.
[2024-09-30] MEDS ORDERED: ZINC OXIDE/PETROLATUM, YELLOW 1 APPLIC/71 GM PASTE TOP PRN (09:30)
[2024-09-30] MEDS ORDERED: Carvedilol 6.25 MG Tab PO SCH (17:00)
[2024-09-30] MEDS ORDERED: Warfarin Sodium 5 MG Tab PO SCH (18:00)
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
[2024-10-01 00:53] VITALS: BP 116/56
[2024-10-01 04:02] VITALS: BP 125/64
--- NOTE | 2024-10-01 04:36 | NUR ---
SHIFT SUMMARY PATIENT HAS BEEN AWAKE FOR MOST OF THE NIGHT. SHE HAS BEEN RESTLESS. SHE WAS MEDICATED FOR PAIN X1 ON THIS SHIFT FOR BACK PAIN WITH 10 MG OF OXYCODONE. TELE IS IN PLACE AND ALSO A BROTH MIXER. PATIENT IS ORIENTED X3. SHE HAS HER CALL LIGHT WITHIN REACH AND HAS BEEN INSTRUCTED TO CALL WITH ANY REQUESTS OR NEEDS. SAFETY PRECAUTIONS ARE BEING MAINTAINED.
[2024-10-01 05:19] LABS: BASOPHILS ABSOLUTE AUTO 0.02 K/mm3 (0.00-0.23); BASOPHILS PERCENT AUTO 0 % (0-2); EOSINOPHILS PERCENT AUTO 0 % (0-6); Hematocrit 32.2 % (33.0-51.0); Hemoglobin 10.5 g/dL (11.5-16.0); IMMATURE GRAN ABSOLUTE AUTO 0.07 K/mm3 (0.00-0.10); IMMATURE GRAN PERCENT AUTO 1 % (0-1); LYMPHOCYTES ABSOLUTE AUTO 3.62 K/mm3 (0.84-5.20); LYMPHOCYTES PERCENT AUTO 30 % (21-46); MONOCYTES ABSOLUTE AUTO 1.13 K/mm3 (0.16-1.47); MONOCYTES PERCENT AUTO 10 % (4-13); Mean Corpuscular HGB 27.7 pg (26.0-34.0); Mean Corpuscular HGB Conc 32.6 g/dL (31.5-36.5); Mean Corpuscular Volume 85 fL (80-100); Mean Platelet Volume 12.7 fL (9.1-12.4); NEUTROPHILS ABSOLUTE AUTO 7.07 K/mm3 (1.96-9.15); NEUTROPHILS PERCENT AUTO 59 % (41-73); Platelet Count 232 K/mm3 (150-400); RDW Coefficient Variation 20.6 % (11.7-14.2); RDW Standard Deviation 61.5 fL (35.1-46.3); Red Blood Cell Count 3.79 M/mm3 (3.80-5.20); White Blood Cell Count 11.91 K/mm3 (4.00-11.30)
[2024-10-01 05:31] LABS: International Normalized Ratio 2.79; Prothrombin Time Results 27.7 Sec (9.7-11.5)
[2024-10-01 05:34] LABS: Albumin, Blood 3.2 g/dL (3.4-5.0); Anion Gap 13 mmol/L (3-11); Blood Urea Nitrogen 93 mg/dL (8-24); Bun/Creatinine Ratio 44.5 (12.0-20.0); CO2, Blood 24 mmol/L (21-32); Calcium, Blood 8.6 mg/dL (8.5-10.1); Chloride, Blood 103 mmol/L (98-108); Creatinine, Blood 2.09 mg/dL (0.40-1.00); Glomerular Filtration Rate 25 (60-); Glucose, Blood 126 mg/dL (70-99); Magnesium, Blood 2.2 mg/dL (1.6-2.4); Phosphorus, Blood 4.4 mg/dL (2.5-4.9); Potassium, Blood 3.8 mmol/L (3.5-5.5); Sodium, Blood 136 mmol/L (136-145)
[2024-10-01 07:11] VITALS: BP 133/73
[2024-10-01] MEDS ORDERED: Isosorbide Mononitrate 60 MG TABCR PO SCH (09:00)
[2024-10-01 10:34] VITALS: BP 132/104
[2024-10-01] MEDS ORDERED: JARDIANCE10 MG PO (12:09)
[2024-10-01] MEDS ORDERED: BUME2 PO (12:10)
[2024-10-01] MEDS ORDERED: METO5 PO (12:10)
--- NOTE | 2024-10-01 12:39 | NUR ---
PATIENT DISCHARGED WITH HER AT 1230. JESSICA PEREZUSHED THE PATIENT OUT IN A WHEELCHAIR. IV REMOVED. TELE REMOVED AND SENT TO PCU. DISCHARGE INSTRUCTIONS PRINTED AND GONE OVER IN DETAIL WITH THE PATIENT. NEW PRESCRIPTIONS SENT TO ROWDY AARON.
[2024-10-01] MEDS ORDERED: Warfarin Sodium 2.5 MG Tab PO ONE (18:00)
== END 2024-10-01 12:30 | disposition home health service (06) | DRG 280 ==
LOC: MEDS 15:10
PROVIDERS: Internal Medicine Nephrology; ADMIT Family Medicine
DX: I13.0 Hypertensive heart and chronic kidney disease with heart failure and stage 1 through stage 4 chronic kidney disease, or unspecified chronic kidney disease (principal); I50.23 Acute on chronic systolic (congestive) heart failure; I21.4 Non-ST elevation (NSTEMI) myocardial infarction; E87.1 Hypo-osmolality and hyponatremia; N18.4 Chronic kidney disease, stage 4 (severe); F17.213 Nicotine dependence, cigarettes, with withdrawal; I25.5 Ischemic cardiomyopathy; I48.91 Unspecified atrial fibrillation; E11.9 Type 2 diabetes mellitus without complications; F32.A Depression, unspecified; Z66 Do not resuscitate; J44.9 Chronic obstructive pulmonary disease, unspecified; I25.10 Atherosclerotic heart disease of native coronary artery without angina pectoris; D63.1 Anemia in chronic kidney disease; Z88.5 Allergy status to narcotic agent; Z88.1 Allergy status to other antibiotic agents; Z90.89 Acquired absence of other organs; Z95.5 Presence of coronary angioplasty implant and graft; Z90.710 Acquired absence of both cervix and uterus; Z95.1 Presence of aortocoronary bypass graft; Z79.899 Other long term (current) drug therapy; Z79.84 Long term (current) use of oral hypoglycemic drugs; Z79.02 Long term (current) use of antithrombotics/antiplatelets; Z79.4 Long term (current) use of insulin; Z79.891 Long term (current) use of opiate analgesic; Z79.01 Long term (current) use of anticoagulants; Z71.6 Tobacco abuse counseling
CPT/HCPCS: 0241U; 36415; 76705; 80069; 82947; 83735; 83880; 84156; 84484; 85025; 85610; 93005; 93010; 94640; 94660; 94664; 94760; 94762; 97162; 97165; 97530; A9270; C8929; J1815; J2919; Q9957